=== PATIENT | male | born 1965 | race Caucasian/White ===

== ENCOUNTER 2017-11-15 07:21 | Inpatient (IN) | payer MEDICARE, MEDICAID ==
[~2017-11-15] VITALS: Ht 175.3 cm; Wt 75.7 kg
[2017-11-15 10:04] LABS: BASOPHILS % 0.3 % (0.0-2.0); EOSINOPHILS % 1.4 % (0.0-5.0); HEMATOCRIT. 37.2 % (42.0-52.0); HEMOGLOBIN. 12.5 g/dL (14.0-18.0); MEAN CORPUSCULAR HEMOGLOBIN 30.4 pg (28.0-32.0); MEAN CORPUSCULAR VOLUME 90.9 fL (80.0-94.0); MEAN PLATELET VOLUME 7.9 fl (7.4-10.4); MONOCYTES % 4.7 % (2.0-8.0); NEUTROPHILS % 74.6 % (40.0-76.0); PLATELET 289 x1000/uL (130-400); RED CELL DISTRIBUTION WIDTH 15.5 % (11.6-14.6)
[2017-11-15 10:12] LABS: PROTHROMBIN TIME 10.8 sec (9.4-11.6)
[2017-11-15 10:18] LABS: CARBON DIOXIDE 27 mEq/L (21-32); CHLORIDE 96 mEq/L (98-107)
[2017-11-15] MEDS ORDERED: FUROSEMIDE 100MG/10ML VIAL IV STA (10:33)
[2017-11-15] MEDS ORDERED: SODIUM BICARBONATE 8.4% 1 MEQ/ML 50ML SYR IV ONE (10:45)
[2017-11-15] MEDS ORDERED: ALBUTEROL (0.083%) 2.5MG/3ML NEB HHN ONE (10:45)
[2017-11-15] MEDS ORDERED: CALCIUM CHLORIDE 1GM/10ML SYR IV ONE (10:45)
[2017-11-15] MEDS ORDERED: INSULIN REGULAR (HUMULIN R) 300UNITS/3ML IV ONE (10:45)
[2017-11-15] MEDS ORDERED: DEXTROSE 50% WATER 50ML SYRINGE IV ONE (10:45)
[2017-11-15] MEDS ORDERED: IPRATROPIUM/ALBUTEROL 0.5-3(2.5)MG/3ML NEB INH PRN (11:45)
[2017-11-15] MEDS ORDERED: CLONIDINE 0.1MG TABLET PO PRN (11:45)
[2017-11-15] MEDS ORDERED: HYDROCODONE/ACETAMINOPHEN 5/325MG TABLET PO PRN (11:45)
[2017-11-15] MEDS ORDERED: ACETAMINOPHEN 325MG TABLET PO PRN (11:45)
[2017-11-15] MEDS ORDERED: ONDANSETRON HCL 4MG/2ML VIAL IV PRN ×2 (11:45→15:45)
[2017-11-15] MEDS ORDERED: MAGNESIUM/ALUMINUM HYDROXIDE/SIMETHICONE 30ML UDC PO PRN (11:45)
[2017-11-15] MEDS ORDERED: DOCUSATE SODIUM 100MG CAPSULE PO PRN (11:45)
[2017-11-15] MEDS ORDERED: HYDROMORPHONE HCL/PF 2MG/ML CPJ IV PRN (15:45)
[2017-11-15] MEDS ORDERED: BACITRACIN ZINC 15GM TUBE TOP ONE (16:16)
[2017-11-15] MEDS ORDERED: GENTAMICIN SULF 40MG/ML 2ML VIAL ONE (16:16)
[2017-11-15] MEDS ORDERED: BUPIVACAINE HCL/PF 0.5% (5MG/ML) 10ML ONE (16:17)
[2017-11-15] MEDS ORDERED: LIDOCAINE HCL 1% 20ML VIAL (Pyxis) INJ ONE (16:17)
[2017-11-15] MEDS ORDERED: NORMAL SALINE 0.9% 10 ML SYR ONE (16:17)
[2017-11-15] MEDS ORDERED: BACITRACIN 50,000 UNITS/VIAL ONE (16:18)
[2017-11-15] MEDS ORDERED: VANCOMYCIN 1,500 MG in SODIUM CHLORIDE 0.9% 250 ML IV NR (16:30)
[2017-11-15] MEDS: PIPERACILLIN/TAZ 2.25G PREMIX 50 ML IV NR ×2 (16:33→16:58)
[2017-11-15] MEDS ORDERED: PROPOFOL 200MG/20ML VIAL IV ONE (16:56)
[2017-11-15] MEDS ORDERED: LIDOCAINE HCL/PF 1% 10 MG/ML 5ML VIAL ONE (16:56)
[2017-11-15 23:00] VITALS: BP 138/76
[2017-11-15 23:30] VITALS: BP 138/76
[2017-11-16] MEDS ORDERED: DEXTROSE 50% WATER 50ML SYRINGE IV PRN (00:45)
[2017-11-16] MEDS ORDERED: PIPERACILLIN/TAZ 3.375G PREMIX 50 ML IV SCH (01:00)
[2017-11-16] MEDS: PIPERACILLIN/TAZ 2.25G PREMIX 50 ML IV SCH ×4 (01:47→22:56)
[2017-11-16 04:00] VITALS: BP 142/79
[2017-11-16] MEDS: BLOOD SUGAR DIAGNOSTIC STRIP TEST SCH ×4 (05:35→21:41)
[2017-11-16 06:36] LABS: BASOPHILS % 0.4 % (0.0-2.0); EOSINOPHILS % 2.1 % (0.0-5.0); HEMATOCRIT. 36.8 % (42.0-52.0); HEMOGLOBIN. 12.5 g/dL (14.0-18.0); LYMPHOCYTES % 18.8 % (20.0-50.0); MEAN CORPUSCULAR VOLUME 91.1 fL (80.0-94.0); MEAN PLATELET VOLUME 8.2 fl (7.4-10.4); MONOCYTES % 6.4 % (2.0-8.0); NEUTROPHILS % 72.3 % (40.0-76.0); PLATELET 275 x1000/uL (130-400); RED BLOOD CELL COUNT 4.04 mill/uL (4.7-6.1); RED CELL DISTRIBUTION WIDTH 15.2 % (11.6-14.6)
[2017-11-16 08:00] VITALS: BP 158/57
[2017-11-16] MEDS: INSULIN LISPRO 100 UNITS/ML SUBCUT SCH ×4 (08:10→21:30)
[2017-11-16] MEDS ORDERED: MORPHINE SULFATE 2 MG/ML CPJ (NOT FOR IM USE) IV PRN (08:45)
[2017-11-16] MEDS ORDERED: ONDANSETRON HCL 4MG/2ML VIAL IV PRN (08:45)
[2017-11-16] MEDS ORDERED: MIDAZOLAM HCL 2 MG/2 ML VIAL ONE (11:23)
[2017-11-16] MEDS ORDERED: FENTANYL CITRATE/PF 50MCG/ML 2ML VIAL ONE ×2 (11:23→11:37)
[2017-11-16] MEDS ORDERED: PROPOFOL 200MG/20ML VIAL IV ONE (11:24)
[2017-11-16] MEDS ORDERED: LIDOCAINE HCL/PF 1% 10 MG/ML 5ML VIAL ONE (11:24)
[2017-11-16] MEDS ORDERED: BACITRACIN ZINC 15GM TUBE TOP ONE (11:25)
[2017-11-16] MEDS ORDERED: BUPIVACAINE HCL/PF 0.5% (5MG/ML) 10ML ONE (11:25)
[2017-11-16] MEDS ORDERED: NORMAL SALINE 0.9% 10 ML SYR ONE (11:25)
[2017-11-16] MEDS ORDERED: LIDOCAINE HCL 1% 20ML VIAL (Pyxis) INJ ONE (11:25)
[2017-11-16] MEDS ORDERED: BACITRACIN 50,000 UNITS/VIAL ONE (11:26)
[2017-11-16] MEDS ORDERED: LABETALOL HCL 5MG/ML VIAL 20ML IV ONE (11:38)
[2017-11-16] MEDS ORDERED: LEVOFLOXACIN 500MG PREMIX 0 ML IV ONE (11:47)
[2017-11-16] MEDS ORDERED: CLOP75TA33 PO (15:04)
[2017-11-16] MEDS ORDERED: FURO-151 PO (15:04)
[2017-11-16] MEDS ORDERED: AMLO10TA80 PO (15:04)
[2017-11-16] MEDS ORDERED: ATOR40TA70 PO (15:04)
[2017-11-16] MEDS ORDERED: CALC667C PO (15:04)
[2017-11-16] MEDS ORDERED: OMEP20TA2 PO (15:04)
[2017-11-16 16:00] VITALS: BP 159/77
[2017-11-16] MEDS: CALCIUM ACETATE 667MG CAPSULE PO SCH (17:19)
[2017-11-16] MEDS: CLOPIDOGREL 75MG TABLET PO SCH (17:20)
[2017-11-16] MEDS: FUROSEMIDE 40MG TABLET PO SCH (17:20)
[2017-11-16] MEDS: AMLODIPINE 10MG TABLET PO SCH (17:20)
[2017-11-16] MEDS ORDERED: BRIM15DR2 EACHEYE (17:45)
[2017-11-16 20:00] VITALS: BP 166/64
[2017-11-16 22:00] VITALS: BP 142/68
[2017-11-16] MEDS: ATORVASTATIN CALCIUM 40MG TABLET PO SCH (22:14)
[2017-11-16] MEDS: BRIMONIDINE 0.2% OPHTH DROPS 5ML EACHEYE SCH (22:14)
[2017-11-17] VITALS (8 sets, daily range): BP systolic 132–153; BP diastolic 52–77
[2017-11-17] MEDS: PIPERACILLIN/TAZ 2.25G PREMIX 50 ML IV SCH ×3 (06:13→23:52)
[2017-11-17 07:37] LABS: BASOPHILS % 0.3 % (0.0-2.0); EOSINOPHILS % 1.7 % (0.0-5.0); HEMATOCRIT. 33.7 % (42.0-52.0); HEMOGLOBIN. 11.1 g/dL (14.0-18.0); LYMPHOCYTES % 15.9 % (20.0-50.0); MEAN CORPUSCULAR HEMOGLOBIN 30.2 pg (28.0-32.0); MEAN CORPUSCULAR VOLUME 91.5 fL (80.0-94.0); MONOCYTES % 7.6 % (2.0-8.0); NEUTROPHILS % 74.5 % (40.0-76.0); PLATELET 259 x1000/uL (130-400); RED BLOOD CELL COUNT 3.69 mill/uL (4.7-6.1); RED CELL DISTRIBUTION WIDTH 15.7 % (11.6-14.6)
[2017-11-17] MEDS: BLOOD SUGAR DIAGNOSTIC STRIP TEST SCH ×4 (07:40→21:58)
[2017-11-17] MEDS: INSULIN LISPRO 100 UNITS/ML SUBCUT SCH ×4 (08:10→21:00)
[2017-11-17] MEDS: CLOPIDOGREL 75MG TABLET PO SCH (08:56)
[2017-11-17] MEDS: CALCIUM ACETATE 667MG CAPSULE PO SCH ×3 (08:56→17:45)
[2017-11-17] MEDS: FUROSEMIDE 40MG TABLET PO SCH (08:56)
[2017-11-17] MEDS: AMLODIPINE 10MG TABLET PO SCH (08:59)
[2017-11-17] MEDS: BRIMONIDINE 0.2% OPHTH DROPS 5ML EACHEYE SCH ×2 (09:00→17:45)
[2017-11-17] MEDS ORDERED: VANCOMYCIN 500 MG PREMIX 100 ML IV SCH (21:00)
[2017-11-17] MEDS: ATORVASTATIN CALCIUM 40MG TABLET PO SCH (21:58)
[2017-11-18 00:03] VITALS: BP 165/74
[2017-11-18 04:00] VITALS: BP 146/65
[2017-11-18] MEDS: BLOOD SUGAR DIAGNOSTIC STRIP TEST SCH ×2 (07:40→12:40)
[2017-11-18 08:00] VITALS: BP 162/73
[2017-11-18] MEDS: INSULIN LISPRO 100 UNITS/ML SUBCUT SCH (08:10)
[2017-11-18] MEDS: CLOPIDOGREL 75MG TABLET PO SCH (08:47)
[2017-11-18] MEDS: CALCIUM ACETATE 667MG CAPSULE PO SCH (08:47)
[2017-11-18] MEDS: FUROSEMIDE 40MG TABLET PO SCH (08:47)
[2017-11-18] MEDS: AMLODIPINE 10MG TABLET PO SCH (08:48)
[2017-11-18] MEDS: PIPERACILLIN/TAZ 2.25G PREMIX 50 ML IV SCH (09:43)
[2017-11-18 12:00] VITALS: BP 161/101
[2017-11-18] MEDS: BRIMONIDINE 0.2% OPHTH DROPS 5ML EACHEYE SCH (12:57)
== END 2017-11-18 12:55 | disposition home or self-care (01) | DRG 617 ==
LOC: ER 07:53 → EDBEDREQ 09:39 → 7WST 10:36 → EDBEDREQ 10:39 → EDBEDREQSVC 10:39 → ENRESERV 19:32
PROVIDERS: ADMIT Internal Medicine; ATTEND Internal Medicine
PROC: 5A1D70Z Performance of Urinary Filtration, Intermittent, Less than 6 Hours Per Day (ICD-10-PCS; 2017-11-15)
PROC: 0Y6Q0Z3 Detachment at Left 1st Toe, Low, Open Approach (ICD-10-PCS; principal; 2017-11-16 12:30)
DX: E11.621 Type 2 diabetes mellitus with foot ulcer (principal); M86.672 Other chronic osteomyelitis, left ankle and foot; E11.40 Type 2 diabetes mellitus with diabetic neuropathy, unspecified; E11.22 Type 2 diabetes mellitus with diabetic chronic kidney disease; E87.5 Hyperkalemia; I12.0 Hypertensive chronic kidney disease with stage 5 chronic kidney disease or end stage renal disease; E11.69 Type 2 diabetes mellitus with other specified complication; N18.6 End stage renal disease; E11.42 Type 2 diabetes mellitus with diabetic polyneuropathy; L08.9 Local infection of the skin and subcutaneous tissue, unspecified; L97.529 Non-pressure chronic ulcer of other part of left foot with unspecified severity; E11.319 Type 2 diabetes mellitus with unspecified diabetic retinopathy without macular edema; H54.7 Unspecified visual loss; E78.5 Hyperlipidemia, unspecified; E11.51 Type 2 diabetes mellitus with diabetic peripheral angiopathy without gangrene; E11.622 Type 2 diabetes mellitus with other skin ulcer; H40.9 Unspecified glaucoma; Z79.899 Other long term (current) drug therapy; Z99.2 Dependence on renal dialysis
CPT/HCPCS: 36415; 71045; 73630; 80048; 80053; 80061; 80202; 82962; 83036; 85025; 85610; 87040; 88305; 88311; 93923; 93970; 96365; 96375; 97116; 97162; 97166; 99285; A4216; J1580; J1815; J1956; J2250; J2543; J2704; J3010; J3370; J3490; J7040; J7050